=== PATIENT | female | born 1985 | race Caucasian/White ===

== ENCOUNTER → 2019-02-07 | Outpatient (CLI) | payer BC ==
[2016-07-25 16:02] VITALS: BMI 24.1
[~2019-02-07] MED LIST: DOCU240C67 PO; FERR-41 PO; FES4PT PO; GADOBENATE 529MG/1ML 15ML VIAL IVP ONE; IBUP800T37 PO; LEVO-85 PO; NS(*) 0.9% 50 ML BAG 50 ML ONE; OXYC-373 PO; PANT20TA26 PO; SUCR1TAB85 PO
--- NOTE | 2019-02-07 09:26 | RADIOLOGY IMAGING REPORT ---
FACILITY: [facility] PATIENT NAME: Kenna Parker : 1985 MR: [id number] V: [id number] EXAM DATE: ORDERING PHYSICIAN: CAYETANO LY TECHNOLOGIST: Location: [facility] Patient: Kenna Parker : 1985 Visit/Account:[id number] Date of Sevice: 02/07/2019 EXAMINATION: MRI pituitary protocol without and with intravenous contrast HISTORY: Hyperprolactinemia. COMPARISON: None available. TECHNIQUE: Multiplanar, multisequence pituitary protocol MRI without and with IV contrast. CONTRAST: 15 mL of IV MultiHance FINDINGS: Pituitary: Pituitary gland: 4 mm hypoenhancement in the left side of the pituitary gland (series 10, image 3). Cavernous sinuses: Negative. Suprasellar cistern: Negative. Visualized optic nerves / chiasm / tracts: Negative. Rest of brain: Rightward nasal septal deviation. IMPRESSION: 1. 4 mm hypoenhancement in the left side of the pituitary gland (series 10, image 3). This could be a microadenoma, although not definite. There is no signal abnormality in this location on the precontr ast sequences and there is no associated mass effect to confirm tumor in this region. 2. Rightward nasal septal deviation. Report Dictated By: Yaakov Martinez MD at 02/07/2019 9:06 AM Report E-Signed By: Yaakov Martinez MD at 02/07/2019 9:19 AM WSN:[id number]
--- NOTE | 2019-02-08 14:14 | RADIOLOGY IMAGING REPORT ---
FACILITY: [facility] [place] PATIENT NAME: MICHAEL INIGUEZ : [id number] MR: [id number] V: [id number] EXAM DATE: [id number] ORDERING PHYSICIAN: CAYETANO LY TECHNOLOGIST: Cherise Valencia PROCEDURE:BILATERAL DIAGNOSTIC DIGITAL MAMMOGRAM WITH CAD ASSISTED INTERPRETATION & 3D TOMOSYNTHESIS REASON FOR STUDY: Left breast tenderness & clear nipple discharge FAMILY HISTORY OF BREAST CANCER: A Great Paternal Aunt BREAST PROCEDURES/TREATMENTS: None COMPARISON STUDIES: None MAMMOGRAM VIEWS OBTAINED: Bilateral 2D & 3D full field CC & MLO projections BREAST DENSITY: The breasts are heterogeneously dense which can obscure small masses. MAMMOGRAM FINDINGS: In the upper portion of the Right breast in the middle depth there is a well circumscribed ovoid nodular density. In the Left breast just lateral to midline middle to posterior depth there appear to be several small well circumscribed nodular densities contiguous to one another. ULTRASOUND RIGHT BREAST: AREA SCANNED: 9-11 o'clock position ULTRASOUND FINDINGS: DIAGNOSTIC CATEGORY 2--BENIGN FINDING. In the approximate 10 o'clock position of the Right breast 5cm from the nipple there is a well circumscribed ovoid hypoechoic region with acoustic shadowing. This may represent a cluster of cysts. This may account for the mammographic findings of the well circumscribed nodule LEFT BREAST: AREA SCANNED: The 12, 1, 2, 3, 6 & 9 o'clock positions of the Left breast. ULTRASOUND FINDINGS: There are mildly prominent ducts in the Left retroareolar breast. In the 1 o'clock position of the Left breast 4cm from the nipple there is a small cluster of cysts measuring approximately 1cm x 1.1cm x 3mm. This may account for the mammographic findings. RECOMMENDATIONS: CLINICAL EVALUATION. IMPRESSION: BIRADS 2: Benign There appear to be small clusters of cysts in both breasts & mildly prominent ducts in the Left retroareolar breast. Clinical follow up recommended for patient's clear nipple discharge. Dictated by: Carmenza Villaseñor M.D. on 02/07/2019 at 16:39 Transcribed by: FAUSTINA on 02/08/2019 at 13:34 Approved by: Carmenza Villaseñor M.D. on 02/08/2019 at 14:11 [facility]
--- NOTE | 2019-02-08 14:15 | RADIOLOGY IMAGING REPORT ---
FACILITY: [facility] [place] PATIENT NAME: MICHAEL INIGUEZ : [id number] MR: [id number] V: [id number] EXAM DATE: ORDERING PHYSICIAN: CAYETANO LY TECHNOLOGIST: Ester Gonzalez RT(R)(CT) PROCEDURE:BILATERAL DIAGNOSTIC DIGITAL MAMMOGRAM WITH CAD ASSISTED INTERPRETATION & 3D TOMOSYNTHESIS REASON FOR STUDY: Left breast tenderness & clear nipple discharge FAMILY HISTORY OF BREAST CANCER: A Great Paternal Aunt BREAST PROCEDURES/TREATMENTS: None COMPARISON STUDIES: None MAMMOGRAM VIEWS OBTAINED: Bilateral 2D & 3D full field CC & MLO projections BREAST DENSITY: The breasts are heterogeneously dense which can obscure small masses. MAMMOGRAM FINDINGS: In the upper portion of the Right breast in the middle depth there is a well circumscribed ovoid nodular density. In the Left breast just lateral to midline middle to posterior depth there appear to be several small well circumscribed nodular densities contiguous to one another. ULTRASOUND RIGHT BREAST: AREA SCANNED: 9-11 o'clock position ULTRASOUND FINDINGS: DIAGNOSTIC CATEGORY 2--BENIGN FINDING. In the approximate 10 o'clock position of the Right breast 5cm from the nipple there is a well circumscribed ovoid hypoechoic region with acoustic shadowing. This may represent a cluster of cysts. This may account for the mammographic findings of the well circumscribed nodule LEFT BREAST: AREA SCANNED: The 12, 1, 2, 3, 6 & 9 o'clock positions of the Left breast. ULTRASOUND FINDINGS: There are mildly prominent ducts in the Left retroareolar breast. In the 1 o'clock position of the Left breast 4cm from the nipple there is a small cluster of cysts measuring approximately 1cm x 1.1cm x 3mm. This may account for the mammographic findings. DIAGNOSTIC CATEGORY 2: Benign RECOMMENDATIONS: CLINICAL EVALUATION. IMPRESSION: BIRADS 2: Benign There appear to be small clusters of cysts in both breasts & mildly prominent ducts in the Left retroareolar breast. Clinical follow up recommended for patient's clear nipple discharge. Dictated by: Carmenza Villaseñor M.D. on 02/07/2019 at 16:39 Approved by: Carmenza Villaseñor M.D. on 02/08/2019 at 14:12 [facility]
--- NOTE | 2019-02-08 14:16 | RADIOLOGY IMAGING REPORT ---
FACILITY: [facility] [place] PATIENT NAME: MICHAEL INIGUEZ : [id number] MR: [id number] V: [id number] EXAM DATE: ORDERING PHYSICIAN: CAYETANO LY TECHNOLOGIST: Ester Gonzalez RT(R)(CT) PROCEDURE:BILATERAL DIAGNOSTIC DIGITAL MAMMOGRAM WITH CAD ASSISTED INTERPRETATION & 3D TOMOSYNTHESIS REASON FOR STUDY: Left breast tenderness & clear nipple discharge FAMILY HISTORY OF BREAST CANCER: A Great Paternal Aunt BREAST PROCEDURES/TREATMENTS: None COMPARISON STUDIES: None MAMMOGRAM VIEWS OBTAINED: Bilateral 2D & 3D full field CC & MLO projections BREAST DENSITY: The breasts are heterogeneously dense which can obscure small masses. MAMMOGRAM FINDINGS: In the upper portion of the Right breast in the middle depth there is a well circumscribed ovoid nodular density. In the Left breast just lateral to midline middle to posterior depth there appear to be several small well circumscribed nodular densities contiguous to one another. ULTRASOUND RIGHT BREAST: AREA SCANNED: 9-11 o'clock position ULTRASOUND FINDINGS: DIAGNOSTIC CATEGORY 2--BENIGN FINDING. In the approximate 10 o'clock position of the Right breast 5cm from the nipple there is a well circumscribed ovoid hypoechoic region with acoustic shadowing. This may represent a cluster of cysts. This may account for the mammographic findings of the well circumscribed nodule LEFT BREAST: AREA SCANNED: The 12, 1, 2, 3, 6 & 9 o'clock positions of the Left breast. ULTRASOUND FINDINGS: There are mildly prominent ducts in the Left retroareolar breast. In the 1 o'clock position of the Left breast 4cm from the nipple there is a small cluster of cysts measuring approximately 1cm x 1.1cm x 3mm. This may account for the mammographic findings. DIAGNOSTIC CATEGORY 2: Benign RECOMMENDATIONS: CLINICAL EVALUATION. IMPRESSION: BIRADS 2: Benign There appear to be small clusters of cysts in both breasts & mildly prominent ducts in the Left retroareolar breast. Clinical follow up recommended for patient's clear nipple discharge. Dictated by: Carmenza Villaseñor M.D. on 02/07/2019 at 16:39 Approved by: Carmenza Villaseñor M.D. on 02/08/2019 at 14:13 [facility]
== END ==
LOC: MAMO 01:07
PROVIDERS: ATTEND Nurse Practitioner Family
DX: N63.11 Unspecified lump in the right breast, upper outer quadrant (principal); N60.42 Mammary duct ectasia of left breast; N60.01 Solitary cyst of right breast; N60.02 Solitary cyst of left breast; E23.6 Other disorders of pituitary gland
CPT/HCPCS: 70553; 76642; 77062; 77066; A9577; J7050